=== PATIENT | male | born 1980 | race Two or more races ===

== ENCOUNTER → 2019-03-02 | Outpatient (CLI) | payer OTHER | END | disposition home or self-care (01) | LOC: RAD 15:25 | DX: M54.6 Pain in thoracic spine (principal); M54.5 Low back pain; M54.42 Lumbago with sciatica, left side | CPT/HCPCS: 72148 ==

== ENCOUNTER 2022-09-17 10:06 | Outpatient (CLI) | payer OTHER | END 2022-09-17 10:21 | disposition home or self-care (01) | LOC: MRI 10:06 | DX: M54.30 Sciatica, unspecified side (principal); M54.9 Dorsalgia, unspecified; R20.2 Paresthesia of skin; G45.9 Transient cerebral ischemic attack, unspecified | CPT/HCPCS: 72148 ==